=== PATIENT | male | born 1975 | race Caucasian/White ===

== ENCOUNTER 2017-05-19 02:48 | Emergency (ER) | payer BC ==
[2017-05-19 03:00] VITALS: BP 142/92; PULSE 61; RESP 18; TEMP 97.8
[2017-05-19] MEDS ORDERED: HYDROcodone/APAP 5-325MG 1 EACH TAB PO STA (03:32)
[2017-05-19] MEDS ORDERED: KETOROLAC 60 MG/2 ML VIAL IM STA (03:32)
[2017-05-19] MEDS ORDERED: PENICILLIN V POTASSIUM 250 MG TAB PO STA (03:32)
--- NOTE | 2017-05-19 03:36 | ED ---
ENT HPI - General Chief complaint: Dental/Oral Stated complaint: Dental/Facial Pain Time Seen by Provider: 05/19/17 03:11 Source: patient, RN notes reviewed Mode of arrival: ambulatory Limitations: no limitations - History of Present Illness Initial comments: patient is a 42-year-old male presents emergency room for evaluation of left- sided jaw pain. Patient states been having pain for the past 3 days. Patient states the pain woke him up from his sleep. Patient does state he has multiple cavities and pulled teeth. Patient states he needs to follow-up with a dentist. Patient states he's having constant throbbing pain in his left lower jaw. Patient states he's been taking Advil with no relief of symptoms. Patient denies fevers or chills. Patient denies nausea or vomiting. Patient denies trouble swallowing. - Related Data Home Medications Medication Instructions Recorded Confirmed Sertraline HCl [Zoloft] 50 mg PO DAILY 05/19/17 05/19/17 Previous Rx's Medication Instructions Recorded HYDROcodone/APAP 5-325MG [[place] 1 tab PO Q6HR PRN #12 tab 05/19/17 5-325] Ibuprofen [Motrin] 600 mg PO Q6HR PRN #20 tab 05/19/17 Penicillin V Potassium [Pen Vee K] 500 mg PO QID #28 tab 05/19/17 Allergies Allergy/AdvReac Type Severity Reaction Status Date / Time No Known Allergies Allergy Verified 05/19/17 02:59 Review of Systems ROS Statement: Those systems with pertinent positive or pertinent negative responses have been documented in the HPI. ROS Other: All systems not noted in ROS Statement are negative. Past Medical History Past Medical History: No Reported History Additional Past Medical History / Comment(s): chronic back pain History of Any Multi-Drug Resistant Organisms: MRSA Date of last positivie culture/infection: 2007 MDRO Source:: right buttocks Past Surgical History: Back Surgery, Cholecystectomy Additional Past Surgical History / Comment(s): pilonidal cyst removed 2007-[facility] Past Psychological History: No Psychological Hx Reported Smoking Status: Former smoker Past Alcohol Use History: None Reported Past Drug Use History: None Reported General Exam - General Exam Comments Initial Comments: Sitting in exam room, no acute distress. Limitations: no limitations General appearance: alert, in no apparent distress Head exam: Present: atraumatic, normocephalic, normal inspection Eye exam: Present: normal appearance Expanded Mouth exam: Present: normal external inspection Teeth exam: Present: dental caries (multiple), dental tenderness # (left lower area) Throat exam: normal inspection Neck exam: Present: normal inspection, full ROM. Absent: tenderness, lymphadenopathy Respiratory exam: Present: normal lung sounds bilaterally. Absent: respiratory distress Cardiovascular Exam: Present: regular rate, normal rhythm, normal heart sounds Extremities exam: Present: normal inspection Back exam: Present: normal inspection Neurological exam: Present: alert, oriented X3, CN II-XII intact, normal gait Psychiatric exam: Present: normal affect, normal mood Skin exam: Present: warm, dry, intact, normal color. Absent: rash Course Vital Signs 05/19/17 02:56 Temperature 97.8 F Pulse Rate 61 Respiratory 18 Rate Blood Pressure 142/92 O2 Sat by Pulse 98 Oximetry Medical Decision Making - Medical Decision Making Patient is a 42-year-old male presents emergency room for evaluation abdominal pain. Patient was sent home on antibiotics and pain medications and advised to follow-up with a dentist. Patient states he understands everything that was discussed with him. Return parameters discussed. Disposition Clinical Impression: Pain, dental Disposition: HOME SELF-CARE Condition: Good Instructions: Dental Caries (ED), Toothache (ED) Additional Instructions: Please follow up with a dentist. If you do not have a dentist, you may contact [facility]. Phone number is [phone] for existing clients. For new clients you may call [phone]. Another option is you have is the [employer] [facility]. Phone number is [phone]. Medications as directed. [place] gargles. Cold fluids can sometimes help with pain as well. Return to the Emergency Room for any worsening or changing symptoms. Use cold compresses to the outside of the face. Prescriptions: HYDROcodone/APAP 5-325MG [[place] 5-325] 1 tab PO Q6HR PRN #12 tab PRN Reason: Pain Ibuprofen [Motrin] 600 mg PO Q6HR PRN #20 tab PRN Reason: Pain Penicillin V Potassium [Pen Vee K] 500 mg PO QID #28 tab Referrals: Charlotte Brewster MD [Primary Care Provider] - 1-2 days Time of Disposition: 03:34
== END 2017-05-19 03:55 | disposition home or self-care (01) ==
LOC: EC 02:48
DX: K02.9 Dental caries, unspecified (principal); R68.84 Jaw pain; Z87.891 Personal history of nicotine dependence; Z79.899 Other long term (current) drug therapy
CPT/HCPCS: 99283; 96372; J1885

== ENCOUNTER → 2018-04-23 | Outpatient (CLI) | payer BC | END | disposition home or self-care (01) | LOC: RADMRIMAIN 19:37 | PROVIDERS: ATTEND Internal Medicine Hematology & Oncology | DX: Z53.9 Procedure and treatment not carried out, unspecified reason (principal) ==

== ENCOUNTER 2018-05-15 12:22 | Emergency (ER) | payer BC ==
[2018-05-15 12:46] VITALS: RESP 18; TEMP 98.3
[2018-05-15] MEDS ORDERED: KETOROLAC 30 MG/ML 1 ML VIAL IM STA (13:07)
[2018-05-15] MEDS ORDERED: ORPHENADRINE 30 MG/ML 2 ML VIAL IM STA (13:07)
--- NOTE | 2018-05-15 13:37 | ED ---
General Adult HPI - General Chief complaint: Back Pain/Injury Stated complaint: Back pain Time Seen by Provider: 05/15/18 12:47 Source: patient, RN notes reviewed Mode of arrival: ambulatory Limitations: no limitations - History of Present Illness Initial comments: 43-year-old male presents to the emergency department for a chief complaint of right leg pain times one week. No recent injuries. Patient has had 2 laminectomies in the past, one in 2007 and one in 2010. Patient states he saw his primary care provider who put him on a Medrol Dosepak last week but it has not helped. he did take two days off work which helped with the pain, but then it worsened again. Patient states the pain is a shooting pain down his right leg from his hip to his foot. Patient admits to numbness in the right buttock but states this has been consistent for 1.5 years and has not changed or increased recently. Patient denies bladder or bowel changes. Patient denies numbness in the groin. Patient has not been taking Motrin or any other pain medications. He was recently put on diabetic medications and is concerned about adding medications. Patient has no other complaints at this time including shortness of breath, chest pain, abdominal pain, nausea or vomiting, headache, or visual changes. - Related Data Previous Rx's Medication Instructions Recorded Metoprolol Tartrate [Lopressor] 25 mg PO BID #60 tab 01/30/18 methylPREDNISolone Dose Pack 4 mg PO DIRECTED #21 package 01/30/18 [Medrol Dose Pack] Cyclobenzaprine [Flexeril] 5 mg PO TID #12 tablet 05/15/18 Ibuprofen [Motrin] 600 mg PO Q6HR PRN #20 tab 05/15/18 Allergies Allergy/AdvReac Type Severity Reaction Status Date / Time No Known Allergies Allergy Verified 05/15/18 12:46 Review of Systems ROS Statement: Those systems with pertinent positive or pertinent negative responses have been documented in the HPI. ROS Other: All systems not noted in ROS Statement are negative. Past Medical History Past Medical History: Diabetes Mellitus, Hypertension Additional Past Medical History / Comment(s): chronic back pain History of Any Multi-Drug Resistant Organisms: MRSA Date of last positivie culture/infection: 2007 MDRO Source:: right buttocks Past Surgical History: Back Surgery, Cholecystectomy Additional Past Surgical History / Comment(s): pilonidal cyst removed 2007-[facility] Past Psychological History: No Psychological Hx Reported Smoking Status: Former smoker Past Alcohol Use History: None Reported Past Drug Use History: None Reported General Exam Limitations: no limitations General appearance: alert, in no apparent distress Head exam: Present: atraumatic Eye exam: Present: normal appearance. Absent: scleral icterus, conjunctival injection Neck exam: Present: normal inspection, full ROM. Absent: tenderness, meningismus, lymphadenopathy Respiratory exam: Present: normal lung sounds bilaterally. Absent: respiratory distress, wheezes, rales, rhonchi, stridor Cardiovascular Exam: Present: regular rate, normal rhythm, normal heart sounds. Absent: systolic murmur, diastolic murmur, rubs, gallop, clicks Extremities exam: Present: full ROM (full ROM of digits, ankle, knee, of RLE. hip flexion to 90 degrees in the RLE), tenderness (minimal tenderness in the ankle. ). Absent: calf tenderness (no calf tenderness, negative tashi sign, no redness swelling or warmth in the RLE.) Back exam: Present: normal inspection, paraspinal tenderness (right side paraspinal tenderness.), vertebral tenderness (minimal lumbar spine tenderness) . Absent: full ROM (Flexion 45 degrees, extension 10 degrees, full rotation bilaterally) Neurological exam: Present: alert, oriented X3, CN II-XII intact, reflexes normal (2+ patellar), other (GCS 15). Absent: motor sensory deficit (sensation intact in RLE) Course Vital Signs 05/15/18 12:44 Temperature 98.3 F Pulse Rate 69 Respiratory 18 Rate Blood Pressure 129/85 O2 Sat by Pulse 93 L Oximetry Medical Decision Making - Medical Decision Making 43-year-old male presents to the emergency department for a chief complaint of right leg pain x 1 week. Patient was seen by primary care and given steroids but that did not help. Patient has had a history of 2 surgeries in the past. Patient has had numbness in the right buttock for 1.5 years and has not had any changes in this recently. No injuries. No bladder or bowel changes. No symptoms in the left leg. Patient describes shooting pain down the right leg to the right foot. On exam patient has good range of motion of the right lower extremity. Neurovascular intact. Minimal lumbar spine tenderness.Lumbar spine x-ray shows alignment is anatomic. Transverse processes intact. There is facet arthropathy and degenerative disc disease at multiple levels as read by Dr. Pope. Patient was given Toradol and Norflex in the emergency department which helped with his pain. Patient does not want any more steroids as the steroids did not help before and he is starting on diabetic medication. Patient will follow up outpatient with orthopedics as he no longer has a surgeon. He will return to the emergency department if he has any worsening symptoms such as increased numbness or bladder or bowel changes. Patient is aware of this and agrees to this plan. Disposition Clinical Impression: Sciatica Disposition: HOME SELF-CARE Condition: Good Instructions: Sciatica (ED), Lumbar Radiculopathy (ED) Additional Instructions: Please take Motrin as directed. Please take Flexeril but do not drive or operate machinery while taking this. Please follow-up with primary care and orthopedics in 1-2 days. Please return to the emergency department if you have any worsening symptoms including bladder or bowel changes or increased pain. Prescriptions: Cyclobenzaprine [Flexeril] 5 mg PO TID #12 tablet Ibuprofen [Motrin] 600 mg PO Q6HR PRN #20 tab PRN Reason: Pain Is patient prescribed a controlled substance at d/c from ED?: No Referrals: Christ Olivares MD [Primary Care Provider] - 1-2 days Gonzalo Sanford MD [Medical Doctor] - 1-2 days Time of Disposition: 14:17
--- NOTE | 2018-05-15 14:01 | XR ---
EXAM TYPE: LUMBAR SPINE X RAY SERIES COMPARISON: NONE HISTORY: Pain TECHNIQUE: 3 views are submitted. FINDINGS: Alignment is anatomic. The pedicles are intact. The transverse processes are intact. There is no s pondylolysis or spondylolisthesis. There is facet arthropathy and degenerative disc disease at multi ple levels with most marked findings at L4-5 and L5-S1. Surgical clips in the gallbladder fossa. IMPRESSION: 1. Although level degenerative change.
[2018-05-15 14:28] VITALS: BP 132/86; PULSE 65
== END 2018-05-15 14:25 | disposition home or self-care (01) ==
LOC: EC 12:22
DX: M51.16 Intervertebral disc disorders with radiculopathy, lumbar region (principal); M46.96 Unspecified inflammatory spondylopathy, lumbar region; R40.2412 Glasgow coma scale score 13-15, at arrival to emergency department; E11.9 Type 2 diabetes mellitus without complications; Z87.891 Personal history of nicotine dependence; Z86.14 Personal history of Methicillin resistant Staphylococcus aureus infection; Z98.890 Other specified postprocedural states
CPT/HCPCS: 72100; 99283; 96372 ×2; J2360; J1885

== ENCOUNTER → 2018-06-30 | Outpatient (CLI) | payer BC ==
--- NOTE | 2018-06-30 22:11 | MR ---
EXAMINATION TYPE: MR lumbar spine wo/w con DATE OF EXAM: 06/30/2018 COMPARISON: Most recent lumbar spine MRI February 16, 2013 HISTORY: Lumbar region radiculopathy per order. Low back pain causing numbness down right leg for 2 m onths with history of back surgery 2007 and 2011 per patient. TECHNIQUE: Multiplanar, multisequence images of the lumbar spine is performed without and with IV contrast, util izing 10 mL intravenous Gadavist FINDINGS: Survey images redemonstrate slight levoconvex scoliotic curvature centered in the upper lum bar spine. Sagittal images of the lumbar spine show vertebral body heights to remain satisfactory. Th ere is stable straightening of the lumbar spine on sagittal images. There is further progression of m ultilevel disc desiccation. There is redemonstration of postsurgical change in the posterior soft tis sues in the lower lumbar spine. There is stable moderate to advanced disc space narrowing L4-L5 and L 5-S1 levels with posterior disc herniations on sagittal images. The conus medullaris is stable in pos ition and signal ending mid L1 level. There are heterogeneous Modic type II degenerative changes in t he lower lumbar spine most prominent at L5-S1 level redemonstrated. There is stable grade 1 retrolist hesis of L5 on S1. No suspicious enhancement is seen. Axial images show the T12-L1, L1-L2, and L2-L3 levels all to remain within normal limits. Axial images at L3-L4 level shows stable mild broad disc bulge with new mild facet degenerative little es bilaterally but spinal canal is preserved bilateral neural foramina are patent. Axial images at L4-L5 level redemonstrated moderate facet degenerative changes and ligamentum flavum hypertrophy effacing posterior lateral thecal sac. There is moderate broad disc bulge mildly effaces the anterior thecal sac. Previously visualized focal right-sided paracentral disc protrusion is not c learly seen on current study. There is suggestion of right-sided laminectomy defect. Clinical correla tion advised. There is moderate left and mild right-sided neural foraminal narrowing. There is new ro unded 5 mm lesion of T2 hypointensity and T1 isointensity with perhaps slight enhancement on sagittal image 8 and corresponding axial image 7 could reflect fragmented disc fragment but appears to be mor e intradural in location. Axial images at the L5-S1 level shows severe broad disc bulge with left lateral disc protrusion compo nent is central disc protrusion with annular tear. There is moderate to advanced facet degenerative c hanges bilaterally. There is suggestion of left-sided laminectomy defect. Spinal canal is mildly effa rafiq anteriorly. There is moderate to severe inferior left and moderate inferior right-sided neural fo raminal narrowing redemonstrated on sagittal images. IMPRESSION: Postsurgical changes in the posterior soft tissue of the lower lumbar spine redemonstrate d. Stable alignment with degenerative changes lower lumbar spine again seen. New lesion L4-L5 level a ppears to be within spinal canal, etiology uncertain. Consider correlation with contrast-enhanced CT to better evaluate and characterize.
== END | disposition home or self-care (01) ==
LOC: RADMRIMAIN 20:04
PROVIDERS: ATTEND Family Medicine
DX: M47.816 Spondylosis without myelopathy or radiculopathy, lumbar region (principal); M53.86 Other specified dorsopathies, lumbar region; Z98.890 Other specified postprocedural states
CPT/HCPCS: 82565; 72158; 36415; A9581

== ENCOUNTER → 2020-08-22 | Outpatient (CLI) | payer BC | END | disposition home or self-care (01) | LOC: LABWHC1 16:00 | PROVIDERS: ATTEND Family Medicine | DX: R51.9 Headache, unspecified (principal) | CPT/HCPCS: U0003; C9803 ==

== ENCOUNTER 2021-06-26 13:25 | Emergency (ER) | payer OTHER, BC ==
[2021-06-26 13:31] VITALS: BP 156/98; PULSE 82; RESP 18; TEMP 98.3
[2021-06-26] MEDS ORDERED: HYDROmorphone 0.5 MG/0.5 ML SYRINGE IM STA (13:50)
--- NOTE | 2021-06-26 14:44 | XR ---
EXAMINATION TYPE: XR shoulder complete RT DATE OF EXAM: 06/26/2021 COMPARISON: NONE HISTORY: Pain TECHNIQUE: Three views are submitted. FINDINGS: The osseous structures are intact. There is no acute fracture or dislocation. AC joint arthropathy. IMPRESSION: 1. AC joint arthropathy.
--- NOTE | 2021-06-26 14:55 | ED ---
General Adult HPI - General Chief complaint: Extremity Injury, Upper Stated complaint: [facility] - fall, back/elbow/arm injury Time Seen by Provider: 06/26/21 13:31 Source: patient, family, RN notes reviewed Mode of arrival: ambulatory Limitations: no limitations - History of Present Illness Initial comments: 46-year-old male presents to the emergency room for a chief complaint of right shoulder pain. Patient was walking in the kitchen at work around a corner when he slipped on a burger [place] and fell directly on his right shoulder. He did not hit his head. He did not lose consciousness. Patient has significant pain with movement of the shoulder.Patient has no other complaints at this time including shortness of breath, chest pain, abdominal pain, nausea or vomiting, headache, or visual changes. - Related Data Previous Rx's Medication Instructions Recorded Metoprolol Tartrate [Lopressor] 25 mg PO BID #60 tab 01/30/18 methylPREDNISolone Dose Pack 4 mg PO DIRECTED #21 package 01/30/18 [Medrol Dose Pack] Cyclobenzaprine [Flexeril] 5 mg PO TID #12 tablet 05/15/18 Ibuprofen [Motrin] 600 mg PO Q6HR PRN #20 tab 05/15/18 Allergies Allergy/AdvReac Type Severity Reaction Status Date / Time No Known Allergies Allergy Verified 06/26/21 13:31 Review of Systems ROS Statement: Those systems with pertinent positive or pertinent negative responses have been documented in the HPI. ROS Other: All systems not noted in ROS Statement are negative. Past Medical History Past Medical History: Diabetes Mellitus, Hypertension Additional Past Medical History / Comment(s): chronic back pain History of Any Multi-Drug Resistant Organisms: MRSA Date of last positivie culture/infection: 2007 MDRO Source:: right buttocks Past Surgical History: Back Surgery, Cholecystectomy Additional Past Surgical History / Comment(s): pilonidal cyst removed 2008-[facility] Past Psychological History: No Psychological Hx Reported Smoking Status: Never smoker Past Alcohol Use History: Rare Past Drug Use History: None Reported General Exam - General Exam Comments Initial Comments: Right shoulder: Patient has 15 flexion and abduction of the right shoulder. Tenderness to the anterior aspect of the right shoulder. Radial pulse 2+. Capillary refill less than 2 seconds. No edema or erythema or ecchymosis noted. Limitations: no limitations General appearance: alert, in no apparent distress Head exam: Present: atraumatic Eye exam: Present: normal appearance, PERRL, EOMI. Absent: scleral icterus, conjunctival injection ENT exam: Present: normal exam, mucous membranes moist Neck exam: Present: normal inspection, full ROM. Absent: tenderness Respiratory exam: Present: normal lung sounds bilaterally. Absent: respiratory distress Cardiovascular Exam: Present: regular rate, normal rhythm, normal heart sounds GI/Abdominal exam: Present: soft, normal bowel sounds. Absent: distended, tenderness Course Vital Signs 06/26/21 13:26 Temperature 98.3 F Pulse Rate 82 Respiratory 18 Rate Blood Pressure 156/98 O2 Sat by Pulse 95 Oximetry Medical Decision Making - Medical Decision Making X-ray of the right shoulder shows before meals joint arthropathy. There is no fracture or dislocation. Patient is a decent amount of pain and will be given a sling for comfort however recommended he do range of motion therapy. Patient will also be given Tylenol 3 to take in conjunction with Motrin. He will return here for any worsening symptoms. He is follow-up with orthopedics. Disposition Clinical Impression: Shoulder pain, right Disposition: HOME SELF-CARE Condition: Good Instructions (If sedation given, give patient instructions): Shoulder Pain (ED) Additional Instructions: Please take Motrin for pain. If pain is severe take Tylenol 3. Use sling as needed for comfort but if you do not need this tried to do range of motion with the shoulder. Return to the emergency room for any worsening symptoms. Follow up with orthopedics. Is patient prescribed a controlled substance at d/c from ED?: No Referrals: Quinten Richardson MD [Primary Care Provider] - 1-2 days Chino Mukherjee MD [STAFF PHYSICIAN] - 1-2 days Time of Disposition: 14:54
[2021-06-26] MEDS ORDERED: ACET/COD 300 MG/30 MG STARTER PACK 6 TAB BTL PO STA (15:08)
== END 2021-06-26 15:22 | disposition home or self-care (01) ==
LOC: EC 13:25
DX: M25.511 Pain in right shoulder (principal); I10 Essential (primary) hypertension; E11.9 Type 2 diabetes mellitus without complications; W01.0XXA Fall on same level from slipping, tripping and stumbling without subsequent striking against object, initial encounter; Y93.01 Activity, walking, marching and hiking; Y92.89 Other specified places as the place of occurrence of the external cause; Y99.0 Civilian activity done for income or pay
CPT/HCPCS: 73030; 99283; 96372; J1170

== ENCOUNTER 2024-01-16 19:33 | Emergency (ER) | payer BC, OTHER ==
[2024-01-16 20:18] VITALS: RESP 20; TEMP 98.3
--- NOTE | 2024-01-16 20:50 | ED ---
General Adult HPI - General Chief complaint: Extremity Injury, Upper Stated complaint: [facility]- left middle finger injury Time Seen by Provider: 01/16/24 19:51 Source: patient, family Mode of arrival: ambulatory Limitations: no limitations - History of Present Illness Initial comments: 48-year-old male presenting to the ED with a chief complaint of left third finger injury. Patient states that he was cutting tortillas at work earlier when his hand slipped and he accidentally cut his left third finger. Now has injury to the distal tip of left third finger. No other injuries at this time. Tetanus status unknown. No other complaints at this time. - Related Data Previous Rx's Medication Instructions Recorded Metoprolol Tartrate [Lopressor] 25 mg PO BID #60 tab 01/30/18 methylPREDNISolone Dose Pack 4 mg PO DIRECTED #21 package 01/30/18 [Medrol Dose Pack] Cyclobenzaprine [Flexeril] 5 mg PO TID #12 tablet 05/15/18 Ibuprofen [Motrin] 600 mg PO Q6HR PRN #20 tab 05/15/18 Cephalexin [Keflex] 500 mg PO Q6HR 7 Days #28 cap 01/17/24 Allergies Allergy/AdvReac Type Severity Reaction Status Date / Time No Known Allergies Allergy Verified 06/26/21 13:31 Review of Systems ROS Statement: Those systems with pertinent positive or pertinent negative responses have been documented in the HPI. ROS Other: All systems not noted in ROS Statement are negative. Past Medical History Past Medical History: Diabetes Mellitus, Hypertension Additional Past Medical History / Comment(s): chronic back pain History of Any Multi-Drug Resistant Organisms: MRSA Date of last positivie culture/infection: 2007 MDRO Source:: right buttocks Past Surgical History: Back Surgery, Cholecystectomy, Orthopedic Surgery Additional Past Surgical History / Comment(s): pilonidal cyst removed 2007-[facility]. Rotator cuff surgery February 2022 Past Psychological History: No Psychological Hx Reported Smoking Status: Never smoker Past Alcohol Use History: Rare Past Drug Use History: None Reported General Exam Limitations: no limitations General appearance: alert, in no apparent distress Head exam: Present: atraumatic, normocephalic Neck exam: Present: normal inspection Respiratory exam: Present: normal lung sounds bilaterally Cardiovascular Exam: Present: regular rate GI/Abdominal exam: Present: soft Extremities exam: Present: other (Left third finger shows avulsion of the distal tip with part of the nail cut off. Good sensation. Good capillary refill.) Neurological exam: Present: alert, oriented X3 Skin exam: Present: warm, dry Course Vital Signs 01/16/24 19:43 Temperature 98.3 F Pulse Rate 87 Respiratory 20 Rate Blood Pressure 158/106 O2 Sat by Pulse 96 Oximetry Medical Decision Making - Medical Decision Making Was pt. sent in by a medical professional or institution (, PA, CORRECTIONS CASEWORKER, urgent care, hospital, or longterm...) When possible be specific @ -No Did you speak to anyone other than the patient for history (EMS, parent, family, police, friend...)? What history was obtained from this source @ -No Did you review nursing and triage notes (agree or disagree)? Why? @ -I reviewed and agree with nursing and triage notes Were old charts reviewed (outside hosp., previous admission, EMS record, old EKG, old radiological studies, urgent care reports/EKG's, longterm records)? Report findings @ -No old charts were reviewed Differential Diagnosis (chest pain, altered mental status, abdominal pain women, abdominal pain men, vaginal bleeding, weakness, fever, dyspnea, syncope, headache, dizziness, GI bleed, back pain, seizure, CVA, palpatations, mental health, musculoskeletal)? @ -Differential Musculoskeletal Muscular strain, contusion, ligament sprain, fracture, arthritis, septic arthritis, bursitis, cellulitis, muscle spasm, nerve compression, DVT, arterial occlusion, herpes zoster, electrolyte abnormality, tumor.... This is not meant to be in all inclusive list EKG interpreted by me (3pts min.). @ -As above X-rays interpreted by me (1pt min.). @ -X-ray of the finger interpreted me which revealed no evidence of acute finding. CT interpreted by me (1pt min.). @ -None done U/S interpreted by me (1pt. min.). @ -None done What testing was considered but not performed or refused? (CT, X-rays, U/S, labs)? Why? @ -None What meds were considered but not given or refused? Why? @ -None Did you discuss the management of the patient with other professionals (professionals i.e. , ERICA, CORRECTIONS CASEWORKER, lab, RT, psych nurse, high school social studies teacher, sanding machine tender, teacher, corporate officer, rn case manager hospice)? Give summary @ -No Was smoking cessation discussed for >3mins.? @ -No Was critical care preformed (if so, how long)? @ -No Were there social determinants of health that impacted care today? How? (Homelessness, low income, unemployed, alcoholism, drug addiction, transportation, low edu. Level, literacy, decrease access to med. care, long-term, rehab)? @ -No Was there de-escalation of care discussed even if they declined (Discuss DNR or withdrawal of care, Hospice)? DNR status @ -No What co-morbidities impacted this encounter? (DM, HTN, Smoking, COPD, CAD, Cancer, CVA, ARF, Chemo, Hep., AIDS, mental health diagnosis, sleep apnea, morbid obesity)? @ -None Was patient admitted / discharged? Hospital course, mention meds given and route, prescriptions, significant lab abnormalities, going to OR and other pertinent info. @ -Discharge 48-year-old male presenting to the ED with a complaint of left third finger injury. On examination patient has avulsion of the skin with no repairable margins. X-ray revealed no evidence of acute finding. Tetanus was updated. Patient had good hemostasis with TXA and Gelfoam. Discharged home with prescription for Keflex. Discussed close return precautions with patient who verbalized agreement. Undiagnosed new problem with uncertain prognosis? @ -No Drug Therapy requiring intensive monitoring for toxicity (Heparin, Nitro, Insulin, Cardizem)? @ -No Were any procedures done? @ -No Diagnosis/symptom? @ -Left third finger injury Acute, or Chronic, or Acute on Chronic? @ -Acute Uncomplicated (without systemic symptoms) or Complicated (systemic symptoms)? @ -Uncomplicated Side effects of treatment? @ -No Exacerbation, Progression, or Severe Exacerbation? @ -No Poses a threat to life or bodily function? How? (Chest pain, USA, [place], pneumonia, PE, COPD, DKA, ARF, appy, cholecystitis, CVA, Diverticulitis, Homicidal, Suicidal, threat to staff... and all critical care pts) @ -No Disposition Clinical Impression: Injury of left middle finger Disposition: HOME SELF-CARE Condition: Good Additional Instructions: Please return to the Emergency Department if symptoms worsen or any other concerns. Please follow-up with your primary care provider. Please monitor for signs of infection. Prescriptions: Cephalexin [Keflex] 500 mg PO Q6HR 7 Days #28 cap Is patient prescribed a controlled substance at d/c from ED?: No Referrals: Quinten Richardson MD [Primary Care Provider] - 1-2 days Time of Disposition: 00:11
[2024-01-16] MEDS: DIPH,PERTUS(ACELL)TETVAC-LF 0.5 ML VIAL IM ONE (20:57)
[2024-01-16] MEDS: TRANEXAMIC ACID 1,000 MG in SODIUM CHLORIDE 0.9% 100 ML IRRIGATION SCH (21:03)
[2024-01-16] MEDS: MORPHINE SULFATE 4 MG/ML SYRINGE IM STA (21:19)
[2024-01-16] MEDS: MORPHINE SULFATE 4 MG/ML SYRINGE IVP STA (21:24)
[2024-01-17] MEDS: CEPHALEXIN 500MG STARTER PACK 4 CAP BTL PO STA (00:16)
[2024-01-17 00:42] VITALS: BP 146/91; PULSE 72
--- NOTE | 2024-01-17 01:59 | XR ---
EXAMINATION TYPE: XR finger LT DATE OF EXAM: 01/16/2024 9:16 PM CLINICAL INDICATION:Male, 48 years old with history of l 3rd finger injury; [facility] COMPARISON: None TECHNIQUE: 4 views FINDINGS: Osseous mineralization appears appropriate. No destructive bony lesion. No acute fracture or dislocat ion. Joint spaces are maintained. Unremarkable soft tissues. No radiopaque foreign body is seen. IMPRESSION: No acute fracture, dislocation, or radiopaque foreign body.
== END 2024-01-17 00:28 | disposition home or self-care (01) ==
LOC: EC 19:33
DX: S61.303A Unspecified open wound of left middle finger with damage to nail, initial encounter (principal); Z23 Encounter for immunization; W26.8XXA Contact with other sharp object(s), not elsewhere classified, initial encounter; Y93.G3 Activity, cooking and baking; Y92.009 Unspecified place in unspecified non-institutional (private) residence as the place of occurrence of the external cause; Y99.0 Civilian activity done for income or pay
CPT/HCPCS: 99283; 96365; 96372; 90471; 73140; 90715; J2270

== ENCOUNTER → 2024-12-30 | Outpatient (CLI) | payer BC ==
--- NOTE | 2024-12-30 08:30 | US ---
EXAMINATION TYPE: US abdomen limited DATE OF EXAM: 12/30/2024 COMPARISON: CT abdomen and pelvis 2018 CLINICAL INDICATION: Male, 49 years old with history of K42.9 UMBILICAL HERNIA WITHOUT OBSTRUCTION OR GANGRENE; Area bulging above umbilicus. TECHNIQUE: Grayscale with or without color Doppler imaging of the area of hernia concern. Real-time scanning was performed by the charging operator utilizing Valsalva and additional dynamic maneuve rs to assess for hernia. FINDINGS: Assess for hernia at location of: Scanned area of concern isoechoic area seen 6.4 x 2.1 cm no eviden ce of defect visualized. IMPRESSION: No obvious ventral wall hernia above the umbilicus. [facility], , 12/30/2024 8:28 AM
== END | disposition home or self-care (01) ==
LOC: RADUSWWP 07:24
PROVIDERS: ATTEND Family Medicine
DX: K42.9 Umbilical hernia without obstruction or gangrene (principal)
CPT/HCPCS: 76705